=== PATIENT | female | born 1940 | race Caucasian/White ===

== ENCOUNTER 2022-03-30 09:49 | Emergency (ER) | payer MEDICARE, SELFPAY ==
--- NOTE | 2022-03-30 10:14 | HMH.EDUTC ---
[facility] [place] Disposition Clinical Impression: Pharyngitis Qualifiers: Pharyngitis/tonsillitis etiology: unspecified etiology Qualified Code(s): J02.9 - Acute pharyngitis, unspecified Disposition: Home, Self-Care Condition on Discharge: Good Instructions: DI for Pharyngitis/Tonsillopharyngitis -- Adult, DI for Viral Syndrome, Preventing the Spread of Coronavirus Discharge Instructions Additional Instructions: Drink plenty of fluids. Take tylenol or ibuprofen for pain or fever. Take the medications as directed. Follow up with your regular doctor. GO TO THE ER FOR ANY WORSENING SYMPTOMS Prescriptions: predniSONE [Deltasone 10mg tablet] 10 mg PO BID 3 Days #6 tab Transmission Status: Received by [facility] Azithromycin [Z-Kishore 250mg Tab*] 250 mg PO UD DOSE PK #6 tab Transmission Status: Received by [facility] Referrals: Provider,Referral, MD [Primary Care Provider] - Time of Disposition: 10:47 Medical Decision Making - Medical Records Medical records reviewed: No: I reviewed the patient's medical records. - Tristen Inquiry Pt receiving controlled substance: No Vital Signs: 03/30/22 10:25 03/30/22 10:41 Temperature 97.9 F 97.9 F Temperature Source Oral Pulse Rate 95 H Pulse Rate [Left] 95 H Respiratory Rate 16 16 Blood Pressure 159/63 H Blood Pressure [Right Arm] 159/63 H Blood Pressure Mean [Right Arm] 95 02 Sat by Pulse Oximetry 99 - Lab Data Lab Results 03/30/22 10:17: Group A Strep Rapid Negative Orders (Tests/Meds): ORDERS Category Date Time Status Covid-19 Nasal PCR ([facility]) Routine Lab 03/30/22 10:43 Received Strep Screen Confirmation Stat Micro 03/30/22 10:17 Received [facility] [place] HPI - General Stated complaint: sore throat,eyes matted Time Seen by Provider: 03/30/22 10:15 - History of Present Illness Provider Complaint: She states that for the past 3 days she has been having worsening sore throat. She has had chills but no fever. - Related Data Previous Rx's Medication Instructions Recorded Azithromycin [Z-Kishore 250mg Tab*] 250 mg PO UD DOSE PK #6 tab 03/30/22 predniSONE [Deltasone 10mg tablet] 10 mg PO BID 3 Days #6 tab 03/30/22 Allergies Allergy/AdvReac Type Severity Reaction Status Date / Time No Known Allergies Allergy Verified 03/30/22 10:29 [facility] History - Hepatitis A Screen Attestation statement:: This patient has been screened for Hepatitis A risk factors. I have reviewed the patient's past medical history: Yes ROS Obtained: Yes All systems reviewed & no additional complaints - Constitutional Constitutional: Reports as per HPI - Eyes Eyes: Denies eye discharge - ENT Ears, Nose, Mouth, and Throat: Reports as per HPI - Cardiovascular Cardiovascular: Denies chest pain - Respiratory Respiratory: Denies chest congestion, Reports cough Physical Exam - General General appearance: alert, in no apparent distress - Head Head exam: atraumatic, normocephalic, normal inspection - Eye Eye exam: Present: normal appearance, PERRL, EOMI - ENT ENT exam: Present: mucous membranes moist, normal external ear exam - Expanded ENT Exam TM/Canal exam: Bilateral TM: erythema Throat exam: Present: tonsillar erythema, tonsillomegaly - Neck Neck exam: Present: normal inspection, full ROM, trachea midline. Absent: meningismus, lymphadenopathy - Chest Chest inspection: Present: normal inspection, symmetric chest wall rise. Absent: tenderness - Respiratory Respiratory exam: Present: normal lung sounds bilaterally. Absent: respiratory distress - Cardiovascular Cardiovascular exam: Present: regular rate, normal rhythm. Absent: JVD - Abdominal Exam Abdominal exam: Present: soft, normal bowel sounds. Absent: distention, tenderness, guarding - Extremities Exam Extremities exam: Present: normal inspection, full ROM, normal capillary refill. Absent: calf tenderness - Back Exam Back exam: Present: zeb
[2022-03-30 10:25] VITALS: BP 159/63; PULSE 95; RESP 16; TEMP 36.6; O2SAT 99; BMI 23.9
[2022-03-30 10:41] VITALS: BP 159/63; PULSE 95; RESP 16; TEMP 36.6
[2022-03-30 11:01] LABS: Strep Scrn Group A (Rapid) Negative (Negative)
== END 2022-03-30 10:50 | disposition home or self-care (01) ==
PROVIDERS: Emergency Provider Nurse Practitioner Family
DX: J02.9 Acute pharyngitis, unspecified (principal)
CPT/HCPCS: 87430; 99212; C9803; G0463; U0003; U0005

== ENCOUNTER → 2022-05-18 10:18 | Outpatient (CLI) | payer MEDICARE, SELFPAY ==
--- NOTE | 2022-05-18 10:23 | US_ITS ---
FINAL REPORT CLINICAL HISTORY: r/o AAA FINDINGS: Limited images of the abdominal aorta were obtained. There is no evidence of abdominal aortic aneurysm. IMPRESSION: No evidence of abdominal aortic aneurysm. Reviewed, Interpreted and Dictated by Neel Stroud MD Transcribed by Adina Novoa Authenticated and [facility]
== END ==
PROVIDERS: PCP Family Medicine; Visit Provider Family Medicine
DX: I10 Essential (primary) hypertension (principal)
CPT/HCPCS: 76705

== ENCOUNTER → 2022-11-10 01:00 | Outpatient (CLI) | payer MEDICARE, SELFPAY ==
[2022-11-10 18:43] LABS: Basophils % 0.6 % (0.1-2.0); Eosinophils # 0.3 K/mm3 (0.0-0.4); Hematocrit 34.7 % (37.0-47.0); Lymphocytes # 1.5 K/mm3 (0.7-4.5); Lymphocytes % 26.4 % (10-50); Mean Corpuscular HGB Conc 31.7 g/dL (31.8-35.4); Mean Corpuscular Hemoglobin 31.5 pg (27.0-31.2); Mean Corpuscular Volume 99.2 fl (81-99); Mean Platelet Volume 11.1 fl (7.4-10.4); Monocytes # 0.5 K/mm3 (0.1-1.0); Monocytes % 9.4 % (1.7-9.3); Neutrophils # 3.3 K/mm3 (1.8-7.8); Neutrophils % 58.7 % (37.0-80.0); Platelet Count 269 K/mm3 (142-424); Red Cell Distribution Width 13.8 % (11.5-17.5); White Blood Count 5.6 K/mm3 (4.8-10.8)
[2022-11-10 19:10] LABS: Hemoglobin A1C 6.3 % (4.0-6.0)
[2022-11-10 19:58] LABS: Alanine Aminotransferase 17 U/L (12-78); Albumin Level 4.3 g/dl (3.5-5.0); Albumin/Globulin Ratio 1.7 (1.1-1.8); Alkaline Phosphatase 70 U/L (38-126); Anion Gap 15.9 mEq/L (5-15); Aspartate Amino Transferase 25 U/L (14-36); Bilirubin,Total 0.4 mg/dl (0.2-1.3); Blood Urea Nitrogen 27 mg/dl (7-17); Calcium 9.2 mg/dl (8.4-10.2); Carbon Dioxide 22 mmol/L (22.0-30.0); Chloride 108 mmol/L (98-107); Cholesterol 154 mg/dl (140-200); Estimated Glomerular Filt Rate 39 ml/min (>60); GFR (African American) 48 ML/MIN (>60); Globulin 2.5 g/dL (1.3-3.2); Glucose 156 mg/dl (74-100); HDL Cholesterol 76 mg/dl (40-60); Potassium 4.9 mmoL/L (3.5-5.1); Sodium 141 mmol/L (136-145); Total Protein,Serum 6.8 g/dl (6.3-8.2); Triglycerides 79 mg/dl (30-150); VLDL Cholesterol 16 mg/dL (0-40)
[2022-11-10 20:08] LABS: Direct LDL Cholesterol 60.54 mg/dL (100-129)
[2022-11-10 20:28] LABS: Thyroid Stimulating Hormone 1.19 uIU/mL (0.465-4.68)
== END ==
PROVIDERS: PCP Family Medicine; Visit Provider Family Medicine
DX: E11.9 Type 2 diabetes mellitus without complications (principal); J02.9 Acute pharyngitis, unspecified; I10 Essential (primary) hypertension; Z79.84 Long term (current) use of oral hypoglycemic drugs
CPT/HCPCS: 80053; 80061; 83036; 84443; 85025

== ENCOUNTER → 2023-03-08 16:56 | Outpatient (CLI) | payer MEDICARE, SELFPAY ==
[2023-03-08 16:59] LABS: Basophils % 0.5 % (0.1-2.0); Eosinophils # 0.2 K/mm3 (0.0-0.4); Eosinophils % 3.8 % (0.1-12.0); Hematocrit 36.1 % (37.0-47.0); Hemoglobin 11.2 g/dL (12.2-16.2); Lymphocytes # 1.5 K/mm3 (0.7-4.5); Lymphocytes % 27.9 % (10-50); Mean Corpuscular HGB Conc 31.2 g/dL (31.8-35.4); Mean Corpuscular Hemoglobin 30.5 pg (27.0-31.2); Mean Platelet Volume 10.7 fl (7.4-10.4); Monocytes # 0.5 K/mm3 (0.1-1.0); Monocytes % 9.5 % (1.7-9.3); Neutrophils % 58.3 % (37.0-80.0); Platelet Count 257 K/mm3 (142-424); Red Blood Count 3.68 M/mm3 (4.20-5.40); Red Cell Distribution Width 13.7 % (11.5-17.5); White Blood Count 5.2 K/mm3 (4.8-10.8)
[2023-03-08 17:04] LABS: Creatinine,Urine Random 89 mg/dL (Not Estab.)
[2023-03-08 17:12] LABS: Chloride 107 mmol/L (98-107); Potassium 4.8 mmoL/L (3.5-5.1); Sodium 140 mmol/L (136-145)
[2023-03-08 17:15] LABS: Blood Urea Nitrogen 30 mg/dl (7-17); Estimated Glomerular Filt Rate 39 ml/min (>60); GFR (African American) 48 ML/MIN (>60)
[2023-03-08 17:16] LABS: Anion Gap 15.8 mEq/L (5-15); Calcium 9.8 mg/dl (8.4-10.2); Carbon Dioxide 22 mmol/L (22.0-30.0); Glucose 155 mg/dl (74-100)
[2023-03-08 17:16] LABS: Microalbumin/Creatinine Ratio 265.1
[2023-03-08 17:21] LABS: Hemoglobin A1C 7.7 % (4.0-6.0)
== END ==
PROVIDERS: PCP Family Medicine; Visit Provider Family Medicine
DX: E11.9 Type 2 diabetes mellitus without complications (principal); I10 Essential (primary) hypertension; Z79.84 Long term (current) use of oral hypoglycemic drugs
CPT/HCPCS: 80048; 82043; 82570; 83036; 85025

== ENCOUNTER → 2023-06-15 11:26 | Outpatient (POV) | payer MEDICARE, SELFPAY | PROVIDERS: Visit Provider Specialist/Technologist | DX: Z00.00 Encounter for general adult medical examination without abnormal findings (principal) ==

== ENCOUNTER 2023-10-02 16:21 | Outpatient (CLI) | payer MEDICARE, SELFPAY ==
[2023-10-02 16:21] LABS: Chloride 110 mmol/L (98-107); Potassium 5.1 mmoL/L (3.5-5.1); Sodium 139 mmol/L (136-145)
[2023-10-02 16:22] LABS: Hematocrit 35.1 % (37.0-47.0); Hemoglobin 11.4 g/dL (12.2-16.2); Mean Corpuscular Volume 99.5 fl (81-99); Red Blood Count 3.53 M/mm3 (4.20-5.40); White Blood Count 6.7 K/mm3 (4.8-10.8)
[2023-10-02 16:23] LABS: Alanine Aminotransferase 20 U/L (12-78); Alkaline Phosphatase 72 U/L (38-126); Aspartate Amino Transferase 28 U/L (14-36); Basophils # 0.1 K/mm3 (0-0.2); Basophils % 0.8 % (0.1-2.0); Bilirubin,Total 0.4 mg/dl (0.2-1.3); Blood Urea Nitrogen 34 mg/dl (7-17); Eosinophils # 0.2 K/mm3 (0.0-0.4); Eosinophils % 3.5 % (0.1-12.0); Estimated Glomerular Filt Rate 36 ml/min (>60); GFR (African American) 44 ML/MIN (>60); Lymphocytes # 1.6 K/mm3 (0.7-4.5); Lymphocytes % 23.6 % (10-50); Mean Corpuscular HGB Conc 32.6 g/dL (31.8-35.4); Mean Corpuscular Hemoglobin 32.4 pg (27.0-31.2); Mean Platelet Volume 10.7 fl (7.4-10.4); Monocytes # 0.5 K/mm3 (0.1-1.0); Monocytes % 7.9 % (1.7-9.3); Neutrophils # 4.3 K/mm3 (1.8-7.8); Neutrophils % 64.2 % (37.0-80.0); Platelet Count 279 K/mm3 (142-424); Red Cell Distribution Width 13.9 % (11.5-17.5)
[2023-10-02 16:24] LABS: Albumin Level 4.2 g/dl (3.5-5.0); Albumin/Globulin Ratio 1.6 (1.1-1.8); Anion Gap 13.1 mEq/L (5-15); Calcium 9.5 mg/dl (8.4-10.2); Carbon Dioxide 21 mmol/L (22.0-30.0); Chol/HDL Ratio 2.5 (1-3.5); Cholesterol 175 mg/dl (140-200); Globulin 2.6 g/dL (1.3-3.2); Glucose 147 mg/dl (74-100); HDL Cholesterol 71 mg/dl (40-60); Total Protein,Serum 6.8 g/dl (6.3-8.2); Triglycerides 113 mg/dl (30-150); VLDL Cholesterol 23 mg/dL (0-40)
[2023-10-02 16:35] LABS: Direct LDL Cholesterol 67.97 mg/dL (100-129)
[2023-10-02 16:43] LABS: Hemoglobin A1C 6.7 % (4.0-6.0)
== END 2023-10-02 23:59 ==
LOC: LAB.DROPOF 16:21
PROVIDERS: PCP Family Medicine; Visit Provider Family Medicine
DX: E11.9 Type 2 diabetes mellitus without complications (principal); I10 Essential (primary) hypertension; Z79.84 Long term (current) use of oral hypoglycemic drugs
CPT/HCPCS: 80053; 80061; 83036; 85025

== ENCOUNTER 2023-11-21 13:09 | Outpatient (POV) | payer MEDICARE, SELFPAY | END 2023-11-21 23:59 | disposition home or self-care (01) | LOC: SC 13:09 | PROVIDERS: PCP Family Medicine; Visit Provider Dermatology | DX: Z00.00 Encounter for general adult medical examination without abnormal findings (principal) ==

== ENCOUNTER 2024-03-04 18:00 | Outpatient (CLI) | payer MEDICARE, SELFPAY ==
[2024-03-04 17:46] LABS: Alanine Aminotransferase 17 U/L (12-78); Albumin Level 4.6 g/dl (3.5-5.0); Albumin/Globulin Ratio 1.8 (1.1-1.8); Alkaline Phosphatase 71 U/L (38-126); Anion Gap 17.5 mEq/L (5-15); Aspartate Amino Transferase 24 U/L (14-36); Basophils # 0.1 K/mm3 (0-0.2); Bilirubin,Total 0.5 mg/dl (0.2-1.3); Blood Urea Nitrogen 39 mg/dl (7-17); Calcium 10.3 mg/dl (8.4-10.2); Carbon Dioxide 22 mmol/L (22.0-30.0); Chloride 106 mmol/L (98-107); Chol/HDL Ratio 2.4 (1-3.5); Cholesterol 193 mg/dl (140-200); Eosinophils # 0.2 K/mm3 (0.0-0.4); Eosinophils % 4.2 % (0.1-12.0); Estimated Glomerular Filt Rate 33 ml/min (>60); GFR (African American) 40 ML/MIN (>60); Globulin 2.6 g/dL (1.3-3.2); Glucose 161 mg/dl (74-100); HDL Cholesterol 81 mg/dl (40-60); Hematocrit 36.3 % (37.0-47.0); Hemoglobin 11.5 g/dL (12.2-16.2); Lymphocytes # 1.4 K/mm3 (0.7-4.5); Mean Corpuscular HGB Conc 31.8 g/dL (31.8-35.4); Mean Corpuscular Hemoglobin 32.1 pg (27.0-31.2); Mean Corpuscular Volume 100.9 fl (81-99); Mean Platelet Volume 11.7 fl (7.4-10.4); Monocytes # 0.5 K/mm3 (0.1-1.0); Monocytes % 9.6 % (1.7-9.3); Neutrophils # 3.3 K/mm3 (1.8-7.8); Neutrophils % 59.2 % (37.0-80.0); Platelet Count 294 K/mm3 (142-424); Potassium 5.5 mmoL/L (3.5-5.1); Red Blood Count 3.59 M/mm3 (4.20-5.40); Sodium 140 mmol/L (136-145); Total Protein,Serum 7.2 g/dl (6.3-8.2); Triglycerides 117 mg/dl (30-150); VLDL Cholesterol 23 mg/dL (0-40); White Blood Count 5.5 K/mm3 (4.8-10.8)
[2024-03-04 17:57] LABS: Direct LDL Cholesterol 73.07 mg/dL (100-129)
[2024-03-04 18:10] LABS: Hemoglobin A1C 7.5 % (4.0-6.0)
== END 2024-03-04 23:59 | disposition home or self-care (01) ==
LOC: LAB.DROPOF 03-05 09:26
PROVIDERS: PCP Family Medicine; Visit Provider Family Medicine
DX: I10 Essential (primary) hypertension (principal); E11.9 Type 2 diabetes mellitus without complications; Z79.84 Long term (current) use of oral hypoglycemic drugs
CPT/HCPCS: 80050; 80053; 80061; 83036; 84443; 85025

== ENCOUNTER 2024-03-26 16:10 | Outpatient (POV) | payer MEDICARE, SELFPAY | END 2024-03-26 23:59 | disposition home or self-care (01) | LOC: SC 16:10 | PROVIDERS: PCP Family Medicine; Visit Provider Dermatology | DX: Z00.00 Encounter for general adult medical examination without abnormal findings (principal) ==

== ENCOUNTER 2024-11-22 10:29 | Outpatient (CLI) | payer MEDICARE, SELFPAY ==
[2024-11-22 18:06] LABS: Creatinine,Urine Random 96 mg/dL (Not Estab.)
[2024-11-22 18:26] LABS: Microalbumin/Creatinine Ratio 254.4
== END 2024-11-22 23:59 | disposition home or self-care (01) ==
LOC: LAB.DROPOF 11-25 10:30
PROVIDERS: PCP Family Medicine; Visit Provider Family Medicine
DX: E11.9 Type 2 diabetes mellitus without complications (principal)
CPT/HCPCS: 82043; 82570

== ENCOUNTER 2025-03-26 12:06 | Outpatient (CLI) | payer MEDICARE, SELFPAY ==
[2025-03-26 16:56] LABS: Hematocrit 33.4 % (37.0-47.0); Hemoglobin 10.7 g/dL (12.2-16.2); Immature Granulocytes % 0.5 %; Mean Corpuscular HGB Conc 32.0 g/dL (31.8-35.4); Mean Corpuscular Hemoglobin 31.0 pg (27.0-31.2); Mean Corpuscular Volume 96.8 fl (81-99); Nucleated Red Blood Cells % 0 %; Platelet Count 251 K/mm3 (142-424); Red Blood Count 3.45 M/mm3 (4.20-5.40); Red Cell Distribution Width-SD 46.0 fL; White Blood Count 6.6 K/mm3 (4.8-10.8)
[2025-03-26 17:28] LABS: Alanine Aminotransferase 15 U/L (12-78); Albumin Level 4.5 g/dl (3.5-5.0); Albumin/Globulin Ratio 1.7 (1.1-1.8); Alkaline Phosphatase 88 U/L (38-126); Anion Gap 17.2 mEq/L (5-15); Aspartate Amino Transferase 23 U/L (14-36); Bilirubin,Total 0.5 mg/dl (0.2-1.3); Blood Urea Nitrogen 37 mg/dl (7-17); Calcium 9.7 mg/dl (8.4-10.2); Carbon Dioxide 23 mmol/L (22.0-30.0); Chloride 102 mmol/L (98-107); Creatinine,Serum 1.50 mg/dl (0.52-1.04); Estimated Glomerular Filt Rate 33 ml/min (>60); GFR (African American) 40 ML/MIN (>60); Globulin 2.7 g/dL (1.3-3.2); Glucose 190 mg/dl (74-100); Potassium 5.2 mmoL/L (3.5-5.1); Sodium 137 mmol/L (136-145); Total Protein,Serum 7.2 g/dl (6.3-8.2)
[2025-03-26 17:31] LABS: Hemoglobin A1C 10.8 % (4.0-6.0)
[2025-03-26 17:59] LABS: Thyroid Stimulating Hormone 1.77 uIU/mL (0.465-4.68)
[2025-03-26 18:19] LABS: Hepatitis C Ab Qual. W/ RFX NEGATIVE (Negative)
[2025-03-28 05:09] LABS: Hepatitis B Surface Antigen Negative (Negative)
--- OUTSIDE RECORDS SUMMARY | 2025-03-31 12:39 | XMS_ITS | Clinical Summary ---
Author Organization Healthcare Address [address] [place] [address] Care Team Providers Care Rouge Miller Name Role Phone Elver Molina MD Primary Care Provider [phone] Family History Medical History Relation Name Comments Cardiac disorder Other 1 Hypertension Other 2 Other cancer Other 3 Relation Name Status Comments Other 1 Other 2 Other 3 Social History Tobacco Use Types Packs/Day Years Used Date Smoking Tobacco: Never Comments Unknown Sex and Gender Information Value Date Recorded Sex Assigned at Not on file Legal Sex Female 8:50 PM EDT Gender Identity Not on file Sexual Orientation Not on file Last Filed Vital Signs Vital Sign Reading Time Taken Comments Blood Pressure - - Pulse - - Temperature - - Respiratory Rate - - Oxygen Saturation - - Inhaled Oxygen Concentration - - Weight 68.5 kg (151 lb 1 oz) 08/30/2016 10:43 AM EST Height 160 cm (5' 3 ) 08/30/2016 10:43 AM EST Body Mass Index 26.76 08/30/2016 10:43 AM EST Plan of Treatment Not on file Care Teams Rouge Miller Relationship Specialty Start Date End Date Elver Molina MD [address] [place] [id number] PCP - General 02/05/21
== END 2025-03-26 23:59 | disposition home or self-care (01) ==
LOC: LAB.DROPOF 03-31 12:06
PROVIDERS: PCP Family Medicine; Visit Provider Family Medicine
DX: Z11.59 Encounter for screening for other viral diseases (principal); E11.9 Type 2 diabetes mellitus without complications
CPT/HCPCS: 80053; 83036; 84443; 85025; 86803; 87340; 87389

== ENCOUNTER 2025-04-10 13:29 | Outpatient (CLI) | payer MEDICARE, SELFPAY ==
--- OUTSIDE RECORDS SUMMARY | 2025-04-11 10:39 | XMS_ITS | Clinical Summary ---
[facility] Address [address] [place] [address] Care Team Providers Care Basic Acoustic Analyst Name Role Phone Elver Molina MD Primary Care Provider [phone] Allergies Active Allergy Reactions Criticality Noted Date Comments Latex Other (See Comments) 01/25/2017 Medications cetirizine (zyrTEC) 10 MG tabletIndication s:Acute seasonal allergic rhinitis, unspecified trigger Take 1 tablet by mouth Daily. 30 tablet 5 02/09/2018 Active Active Problems Problem Noted Date Diagnosed Date Sore throat 02/09/2018 Social History Tobacco Use Types Packs/Day Years Used Date Smoking Tobacco: Never Smokeless Tobacco: Never Alcohol Use Standard Drinks/Week Comments No 0 (1 standard drink = 0.6 oz pur e alcohol) Abuse Screen Answer Date Recorded Unsafe at Home or Work/School Not on file Feels Threatened by Someone? Not on file 05/2023 Does Anyone Keep You from Co ntacting Others or Doint Things Outside the Home? Not on file 07/03/2023 Physical Sign of Abuse Present Not on file 1 Housing Stability Answer Date Recorded Current Living Arrangements Not on file 05/2023 Potentially Unsafe Housing Conditions Not on howard e 07/03/2023 Family and Community Support Answer Mikhail e Recorded Help with Day-to-Day Activities Not on file 07/03/2023 Lonely or Isolated Not on file 07/03/2023 Employment Answer Date Recorded Do you want help finding or keeping work or a avery b? Not on file 07/03/2023 Disabilities Answer Date Recorded Concentrating, Remembering, or Making Decisions Difficulty Not on file 07/03/2023 Doing Errands Independently Difficulty Not on fi le 07/03/2023 Education Answer Date Recorded Help with school or training? Not on file Preferred Language Not on file 07/03/2023 Comments Unknown Sex and Gender Information Value Date Recorded Sex Assigned at Not on file Legal Sex Female 11:12 AM EDT Gender Identity Not on file Sexual Orientation Not on file Last Filed Vital Signs Vital Sign Reading Time Taken Comments Blood Pressure - - Pulse 88 02/09/2018 3:31 PM EDT Temperature 37.3 C (99.2 F) 02/09/2018 3:31 PM EDT Respiratory Rate 20 02/09/2018 3:31 PM EDT Oxygen Saturation 97% 02/09/2018 3:31 PM EDT Inhaled Oxygen Concentration - - Weight 64.9 kg (143 lb) 02/09/2018 3:31 PM EDT Height 160 cm (5' 3 ) 02/09/2018 3:31 PM EDT Body Mass Index 25.33 02/09/2018 3:31 PM EDT Plan of Treatment Health Maintenance Due Date Last Done Comments DXA SCAN 1941 TDAP/TD VACCINES (1 - Tdap) 1960 COLOGUARD 1986 COLON CANCER SCREENING 5 YEAR SIGMOIDOSCOPY 1986 COLONOSCOPY 1986 COL[address] CANCER SCREENING 1986 CT COLONOGRAPHY 1986 FECAL OCCULT BLOOD TEST 1986 FIT Testing (1 year) 1986 Pneumococcal Vaccine 50+ (1 of 1 - PCV) 1991 ZOSTER VACCINE (1 of 2) 1991 RSV Vaccine - Adults (1 - 1-dose 75+ series) 7 COVID-19 Vaccine ( - season) 2024 ANNUAL WELLNESS VISIT 02/27/2025 02/28/2024 INFLUENZA VACCINE 06/25/2025 Insurance [employer] PPO Care Teams Basic Acoustic Analyst Relationship Specialty Start Date End Date Elver Molina MD [address] [address] PCP - General Family Medicine 02/09/18
--- OUTSIDE RECORDS SUMMARY | 2025-04-11 10:39 | XMS_ITS | Clinical Summary ---
Author Organization Healthcare Address [address] [place] [address] Care Team Providers Care Putty Worker Name Role Phone Elver Molina MD Primary Care Provider [phone] Family History Medical History Relation Name Comments [...] of Treatment Not on file Care Teams Putty Worker Relationship Specialty Start Date End Date Elver Molina MD [address] [place] [id number] PCP - General 02/05/21
== END 2025-04-10 23:59 | disposition home or self-care (01) ==
LOC: LAB.DROPOF 04-11 10:37
PROVIDERS: PCP Family Medicine; Visit Provider Family Medicine
DX: R39.9 Unspecified symptoms and signs involving the genitourinary system (principal)
CPT/HCPCS: 87086; 87088; 87186

== ENCOUNTER 2025-09-24 07:28 | Outpatient (CLI) | payer MEDICARE, SELFPAY ==
[2025-09-24 17:13] LABS: Hematocrit 34.2 % (37.0-47.0); Hemoglobin 11.3 g/dL (12.2-16.2); Immature Granulocytes % 0.3 %; Mean Corpuscular HGB Conc 33.0 g/dL (31.8-35.4); Mean Corpuscular Hemoglobin 31.8 pg (27.0-31.2); Mean Corpuscular Volume 96.3 fl (81-99); Nucleated Red Blood Cells % 0 %; Platelet Count 227 K/mm3 (142-424); Red Blood Count 3.55 M/mm3 (4.20-5.40); Red Cell Distribution Width-SD 43.5 fL; White Blood Count 8.0 K/mm3 (4.8-10.8)
[2025-09-24 17:58] LABS: Alanine Aminotransferase 20 U/L (12-78); Albumin Level 4.4 g/dl (3.5-5.0); Albumin/Globulin Ratio 1.6 (1.1-1.8); Alkaline Phosphatase 99 U/L (38-126); Anion Gap 14.4 mEq/L (5-15); Aspartate Amino Transferase 25 U/L (14-36); Bilirubin,Total 0.5 mg/dl (0.2-1.3); Blood Urea Nitrogen 36 mg/dl (7-17); Calcium 9.5 mg/dl (8.4-10.2); Carbon Dioxide 22 mmol/L (22.0-30.0); Chloride 105 mmol/L (98-107); Creatinine,Serum 1.40 mg/dl (0.52-1.04); Estimated Glomerular Filt Rate 36 ml/min (>60); GFR (African American) 43 ML/MIN (>60); Globulin 2.8 g/dL (1.3-3.2); Glucose 284 mg/dl (74-100); Potassium 5.4 mmoL/L (3.5-5.1); Sodium 136 mmol/L (136-145); Total Protein,Serum 7.2 g/dl (6.3-8.2)
[2025-09-24 18:06] LABS: Hemoglobin A1C 11.8 % (4.0-6.0)
[2025-09-24 18:08] LABS: Total Cells Counted 100
[2025-09-24 18:10] LABS: RBC Morphology Normal
--- OUTSIDE RECORDS SUMMARY | 2025-09-25 07:29 | XMS_ITS | Clinical Summary ---
Author Organization Healthcare Address [address] [place] [address] Care Team Providers Care Linotype Worker Name Role Phone Elver Molina MD Primary Care Provider [phone] Family History Medical History Relation Name Comments [...] of Treatment Not on file Care Teams Linotype Worker Relationship Specialty Start Date End Date Elver Molina MD [address] [place] [id number] PCP - General 02/05/21
--- OUTSIDE RECORDS SUMMARY | 2025-09-25 07:29 | XMS_ITS | Clinical Summary ---
[facility] Address [address] [place] [address] Care Team Providers Care Chief Librarian Circulation Department Name Role Phone Elver Molina MD Primary Care Provider [phone] Allergies Active Allergy Reactions Criticality Noted Date [...] Date Last Done Comments DXA SCAN 1941 COVID-19 Vaccine (#1) 1946 TDAP/TD VACCINES (1 - Tdap) 1960 COLOGUARD 1986 COLON CANCER SCREENING 5 YEAR SIGMOIDOSCOPY 1986 COLONOSCOPY 1986 COLORECTAL CANCER SCREENING 1986 CT COLONOGRAPHY 1986 FECAL OCCULT BLOOD TEST 1986 FIT Testing (1 year) 1986 Pneumococcal Vaccine 50+ (1 of 1 - PCV) 1991 ZOSTER VACCINE (1 of 2) 1991 RSV Vaccine - Adults (1 - 1-dose 75+ series) 7 ANNUAL WELLNESS VISIT 02/27/2025 02/28/2024 INFLUENZA VACCINE 04/25/2025 Insurance Care Teams Chief Librarian Circulation Department Relationship Specialty Start Date End Date Elver Molina MD [address] [place] [address] [place] [id number] PCP - General Family Medicine 02/09/18
== END 2025-09-24 23:59 | disposition home or self-care (01) ==
LOC: LAB.DROPOF 09-25 07:28
PROVIDERS: PCP Family Medicine; Visit Provider Family Medicine
DX: E78.5 Hyperlipidemia, unspecified (principal); E11.9 Type 2 diabetes mellitus without complications; I10 Essential (primary) hypertension
CPT/HCPCS: 80053; 83036; 85007; 85025